=== PATIENT | female | born 1960 | race Caucasian/White ===

== ENCOUNTER 2024-01-02 15:06 | Emergency (ER) | payer OTHER, MEDICARE ==
[~2024-01-02] VITALS: Ht 162.6 cm; Wt 98.0 kg
[2024-01-02 15:15] VITALS: BP 119/71; PULSE 104; TEMP 97.3; O2SAT 96
[2024-01-02 17:52] VITALS: RESP 16
[2024-01-02] MEDS: ketorolac trometh 15mg/ml vial 15 MG/ML ML IM ONE (17:52)
== END 2024-01-02 17:59 | disposition home or self-care (01) ==
LOC: ER 15:06
DX: M54.2 Cervicalgia (principal); M54.50 Low back pain, unspecified; Z88.0 Allergy status to penicillin; Z88.5 Allergy status to narcotic agent; V49.88XA Car occupant (driver) (passenger) injured in other specified transport accidents, initial encounter; Y93.89 Activity, other specified; Y92.89 Other specified places as the place of occurrence of the external cause; Y99.8 Other external cause status
CPT/HCPCS: 72040; 72100; 96372; 99284; J1885